=== PATIENT | female | born 1985 | race African-American/Black ===

== ENCOUNTER 2024-10-13 10:54 | Emergency (ER) | payer OTHER ==
[~2024-10-13] VITALS: Ht 167.6 cm; Wt 60.0 kg
[2024-10-13 10:57] VITALS: O2SAT 98
[2024-10-13] MEDS: KETOROLAC 30MG/ML VIAL IV ONE (11:22)
[2024-10-13 11:24] LABS: BASOPHILS % 0.5 % (0.0-2.0); HEMATOCRIT. 35.3 % (36.0-48.0); HEMOGLOBIN. 11.6 g/dL (12.0-16.0); LYMPHOCYTES % 15.5 % (20.0-50.0); MEAN CORPUSCULAR HEMOGLOBIN 28.4 pg (28.0-32.0); MEAN CORPUSCULAR HGB CONC 32.9 g/dL (31.0-37.0); MEAN CORPUSCULAR VOLUME 86.3 fL (81.0-99.0); MEAN PLATELET VOLUME 8.7 fl (7.4-10.4); PLATELET 327 x1000/uL (130-400); RED BLOOD CELL COUNT 4.09 mill/uL (4.2-5.4); RED CELL DISTRIBUTION WIDTH 13.5 % (11.6-14.6); WHITE BLOOD COUNT 9.8 x1000/uL (4.5-11.0)
[2024-10-13 11:32] LABS: CHLORIDE 104 mEq/L (98-107); POTASSIUM 3.3 mEq/L (3.5-5.1); SODIUM 140 mEq/L (136-145)
[2024-10-13 11:33] LABS: CALCIUM 9.5 mg/dL (8.7-10.4); CARBON DIOXIDE 27 mEq/L (21-32)
[2024-10-13 11:38] LABS: CREATININE 0.5 mg/dL (0.6-1.0); GLUCOSE 83 mg/dL (70-105); UREA NITROGEN BLOOD 13 mg/dL (9-23)
[2024-10-13 11:39] LABS: TROPONIN I HIGH SENSITIVITY < 4 ng/L (3.0-34)
[2024-10-13 11:44] LABS: PROTHROMBIN TIME 10.4 sec (9.6-11.0)
[2024-10-13 12:29] LABS: HCG SCREEN NEGATIVE
[2024-10-13] MEDS ORDERED: AMOX1TAB16 MT (14:06)
[2024-10-13] MEDS: AMOXICILLIN/POTASSIUM CLAVULANATE 875/125MG TAB PO ONE (14:13)
[2024-10-13] MEDS: IOHEXOL-300 100 ML BOTTLE ONE (14:17)
[2024-10-13] MEDS ORDERED: IBUP-2029 MT (14:17)
[2024-10-13 14:23] VITALS: BP 133/99; PULSE 82; RESP 16; TEMP 37; O2SAT 99
== END 2024-10-13 14:24 | disposition home or self-care (01) ==
LOC: ER 10:54
DX: K11.20 Sialoadenitis, unspecified (principal); Z88.0 Allergy status to penicillin; Z79.899 Other long term (current) drug therapy
CPT/HCPCS: 80048; 84703; 85025; 85610; 84484; 36415; 71045; 70491; 93005; 96374; 99285; Q9967; J1885; Z7610 ×2